=== PATIENT | female | born 2000 | race Caucasian/White ===

== ENCOUNTER → 2023-09-30 | Outpatient (CLI) | payer OTHER ==
[2023-09-30 15:12] VITALS: BP 133/83; PULSE 76; RESP 16; TEMP 98.2
--- NOTE | 2023-09-30 15:54 | P.SLEEP ---
History of Present Illness DATE: 09/30/2023 CONSULTATION/NEW PATIENT EVALUATION HISTORY OF PRESENT ILLNESS/SLEEP-WAKE EVALUATION: 23-year-old lady had been e valuated in the sleep center for possible obstructive sleep apnea hypopnea syndrome. SLEEP SCHEDULE: Usually sleep schedule from midnight until 11 AM on weekdays and from 11 PM until 9 AM on weekend. Patient works different shifts including afternoon and nights. FALLING ASLEEP: Patient has difficulties to fall asleep, has TV set in bedroom. DURING SLEEP: Patient sleeps on the back and side position with loud snoring and awakenings from sleep 2 times. Positive history of grinding teeth, dry mouth, heartburn and sweating during sleep. No history of nocturia no history of hypnogogical hallucinations, sleep paralysis, or cataplexy. DURING THE DAY/WAKE STATE: In the morning patient wake up tired, falling asleep during the day. B[place] sleepiness scale is 9. Patient take nap in the middle of the day. PAST MEDICAL HISTORY: Anxiety. PAST SURGICAL HISTORY: None. MEDICATIONS: Prozac 20 mg once a day. SOCIAL HISTORY: Positive for smoking vape for 5 years, alcohol consumption oc casional. FAMILY HISTORY: Hypertension, heart problems, cancer, diabetes, liver problems. REVIEW OF SYSTEMS: Loud snoring, awakenings from sleep, sleepiness during the day. No fevers. No double vision. No recent chest pain. No shortness of breath. No abdominal pain. No bleeding episodes. No blood in urine. No seizure episodes. PHYSICAL EXAMINATION: GENERAL: A pleasant patient without any distress. VITAL SIGNS: Please see below. Weight 174 pounds, BMI 30.8. HEENT: PERRLA, EOMI. Evaluation of oropharynx showed tongue protrudes midline, low position of soft palate Mallampati 4. NECK: Supple. No JVD. Thyroid is not palpable. 14 inches in circumference. LUNGS: Clear to percussion and to auscultation. Good air exchange. No wheezing or rhonchi. HEART: S1, S2 regular. No murmurs, gallops or rubs. ABDOMEN: Soft and nontender. Bowel sounds are present. No organomegaly appreciated. EXTREMITIES: No clubbing or cyanosis. STUDIO SET UP WORKER: Awake, alert, and oriented x3. Cranial nerves 2 to 7 intact. There is no fasciculation or atrophy noted. No focal deficits observed. ASSESSMENT: 1. Loud snoring, awakenings from sleep, extremely low position of soft palate Mallampati 4, sleepiness during the day. Obstructive sleep apnea hypopnea syndrome. . 2. Mild obesity, BMI 30.8. 3. History of anxiety. PLAN: 1. Polysomnography for evaluation of patient's breathing during sleep. 2. Following plan after reading sleep study. 3. Preferable position during sleep on the side. 4. No driving if patient feels any sleepiness. Patient is aware of civil and criminal liability for unsafe driving. 5. Sleep hygiene with regular sleep time for at least 7.5-8 hours. 6. Watching and losing weight. Thank you very much for referring this patient for consultation. Sincerely, Edmund Jason MD, PhD, FAASM. Diplomat of [place] [employer], Sleep Medicine Board by [place] [place] [employer] Commercial Property Manager of [facility] Past Medical History Past Medical History: No Reported History Additional Past Medical History / Comment(s): Anxiety History of Any Multi-Drug Resistant Organisms: None Reported Past Surgical History: No Surgical Hx Reported, Cardiac Ablation Past Anesthesia/Blood Transfusion Reactions: No Reported Reaction Past Psychological History: Anxiety Smoking Status: Vaper Past Alcohol Use History: Occasional, Rare Past Drug Use History: Marijuana - Past Family History Father Family Medical History: Cancer, Hypertension Additional Family Medical History / Comment(s): father passed due to cancer, colon,liver,lung Mother Family Medical History: Diabetes Mellitus, Hyperlipidemia, Hypertension, Myocardial Infarction ([place]) Medications and Allergies Home Medications Medication Instructions Recorded Confirmed Type ALPRAZolam [Xanax] 0.5 mg PO ONCE PRN #1 tablet 09/29/23 Rx FLUoxetine HCL [PROzac] 20 mg PO DAILY 09/30/23 09/30/23 History Physical Exam Vitals: Vital Signs Temp Pulse Resp BP Pulse Ox 09/30/23 14:37 98.2 F 76 16 133/83 99 Intake and Output 09/30/23 09/30/23 09/30/23 06:59 14:59 22:59 Other: Weight 78.925 kg Sleep Note - Sleep Data ESS Total: 9 - Sleep Note Sleep Note: Temperature: 98.2 F Pulse Rate: 76 Respiratory Rate: 16 Blood Pressure: 133/83 SpO2: 99 Height: 5 ft 3 in Weight: 78.925 kg BMI: Neck Circumference: 14
== END ==
LOC: 3 N SLEEP 13:57
PROVIDERS: ATTEND Internal Medicine
DX: G47.33 Obstructive sleep apnea (adult) (pediatric) (principal); E66.9 Obesity, unspecified; F41.9 Anxiety disorder, unspecified; G47.10 Hypersomnia, unspecified; F17.290 Nicotine dependence, other tobacco product, uncomplicated; Z68.30 Body mass index [BMI] 30.0-30.9, adult
CPT/HCPCS: 99211

== ENCOUNTER → 2023-11-09 | Outpatient (CLI) | payer OTHER ==
--- NOTE | 2023-11-10 11:42 | P.PCN ---
Description of Procedure: CLINICAL: A home sleep apnea test has been done for confirmation of possible obstructive sleep apnea-hypopnea syndrome. DESCRIPTION OF PROCEDURE: RESULTS: Recording time was 8 hours 5 minutes. Evaluation time was 7 hours 54 minutes. Evaluation time is sufficient for making conclusion about results of the test. Raw data of sleep recording has been reviewed and is adequate. Respiratory channel showed 28 apneas and 73 hypopneas. Apnea-hypopnea index was 12.8 per hour. Pulse rate in the range between minimum 48, maximum 103, average 67 by computer calculation. Lowest desaturation was 60%. IMPRESSION: 1. Obstructive Sleep Apnea Hypopnea Syndrome with symptoms of excessive daytime sleepiness, patient takes nap in the middle of the day. 2. History of anxiety Please see other impressions from consultation. PLAN: 1. The patient will be started on auto-PAP treatment for correction of respiratory abnormallities during sleep. 2. I will see patient for follow up visit to discuss results of the test, evaluate clinical response on treatment with PAP therapy and make any necessary adjustments related to mask fitting, pressure, and humidification. 3. Watching weight. 4. Sleep hygiene with regular time in bed for at least 8 hours. 5. No driving if feeling any sleepiness. Thank you very much for allowing me to participate in the management of your patient. Sincerely, Edmund Jason MD, PhD, FAASM Diplomat of [employer] Sleep Medicine Board of [place] [employer] Loft Worker Apprentice [facility]
== END ==
LOC: 3 N SLEEP 16:50
PROVIDERS: ATTEND Internal Medicine
DX: G47.33 Obstructive sleep apnea (adult) (pediatric) (principal); Z86.59 Personal history of other mental and behavioral disorders